=== PATIENT | male | born 1970 | race American Indian/Alaskan Native ===

== ENCOUNTER 2016-12-10 13:36 | Emergency (ER) | payer OTHER ==
[2016-12-10 13:37] VITALS: BMI 26.8
[2016-12-10 13:49] VITALS: BP 163/82; PULSE 89; RESP 20; TEMP 98.4; O2SAT 97
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
--- NOTE | 2016-12-10 15:07 | RAD ---
PROCEDURE: Radiographs of the Left Shoulder HISTORY: Fall 1 week ago COMPARISON: None available. FINDINGS: BONES: Osseous demineralization limits evaluation for acute fracture lines. No acute displaced fracture. The distal clavicle and underlying ribs appear intact. JOINTS: No acute dislocation. Mild narrowing of the glenohumeral joint space. SOFT TISSUES: Soft tissues appear unremarkable. No evidence of radiopaque foreign body. IMPRESSION: Degenerative changes. Osseous demineralization. No acute displaced fracture or dislocation evident. If symptoms persist or if there is continued clinical concern, x-ray follow-up in 7-10 days should be considered.
== END 2016-12-10 15:20 | disposition home or self-care (01) ==
LOC: C.ER 13:36
DX: S40.012A Contusion of left shoulder, initial encounter (principal); W19.XXXA Unspecified fall, initial encounter; Y93.9 Activity, unspecified; Y92.9 Unspecified place or not applicable